=== PATIENT | male | born 1935 | race Caucasian/White ===

== ENCOUNTER 2016-05-31 12:28 | Day surgery (SDC) | payer MEDICARE, BC ==
[2016-05-31] VITALS (14 sets, daily range): BP systolic 125–161; BP diastolic 84–122; PULSE 51–89; TEMP 97.6
[~2016-05-31] VITALS: Ht 180.3 cm; Wt 114.0 kg
[2016-05-31] MEDS ORDERED: HCTZ 25MG TAB25 MG PO (13:08)
[2016-05-31] MEDS ORDERED: CORDARONE200 MG/TAB PO (13:09)
[2016-05-31] MEDS ORDERED: CARDIZEM CD 12120 MG PO (13:11)
[2016-05-31] MEDS ORDERED: COZAAR100 MG PO (13:12)
[2016-05-31] MEDS ORDERED: XARELTO20 MG PO (13:13)
[2016-05-31] MEDS ORDERED: FLOMAX 0.40.4 MG/CAP PO (13:14)
[2016-05-31 14:05] LABS: POTASSIUM 3.6 mmol/L (3.4-5.0)
[2016-05-31 14:33] LABS: INR 1.5 (0.8-3.0); PROTHROMBIN TIME 16.4 SECONDS (9.7-12.8)
[2016-05-31 14:40] LABS: THYROID STIMULATING HORMONE 5.58 uIU/mL (0.465-4.680)
[2016-10-28] MEDS ORDERED: PRILOSEC10 MG PO (10:11)
[2016-10-28] MEDS ORDERED: MULTI VITAMINS1 TAB PO (10:11)
== END 2016-05-31 16:40 | disposition home or self-care (01) ==
LOC: COL.CAR 12:28
PROVIDERS: Internal Medicine Interventional Cardiology
DX: I48.91 Unspecified atrial fibrillation (principal); I08.0 Rheumatic disorders of both mitral and aortic valves; Z79.01 Long term (current) use of anticoagulants; Z79.899 Other long term (current) drug therapy; R60.0 Localized edema; I87.2 Venous insufficiency (chronic) (peripheral)
CPT/HCPCS: J2250; J3010

== ENCOUNTER 2018-10-26 10:02 | Day surgery (SDC) | payer MEDICARE, BC ==
[~2018-10-26] VITALS: Ht 180.3 cm; Wt 105.4 kg
[~2018-10-26 10:02] MED LIST: ANTIVERT 25MG25 MG PO; ARICEPT 5MG PO; ASPIRIN 81M81 MG/TA2 PO; ASPIRIN E.C. 8181 MG PO; CARDIZEM CD 12120 MG PO; CORDARONE200 MG/TAB PO; COZAAR100 MG PO; FLOMAX 0.40.4 MG/CAP PO; HCTZ 25MG TAB25 MG PO; LASIX 20MG TABL20 MG PO; MULTI VITAMINS1 TAB PO; PRILOSEC10 MG PO; PROTONIX 40MG T40 MG PO; TIROSINT88 MC1 PO; ULTRAM 50MG TAB50 MG PO; XARELTO20 MG PO
[2018-10-26 10:55] LABS: INR 1.4 (0.8-3.0); POTASSIUM 3.6 mmol/L (3.4-5.0); PROTHROMBIN TIME 16.2 SECONDS (9.7-12.8)
[2018-10-26 11:03] VITALS: BP 163/112; PULSE 75; TEMP 98
[2018-10-26] MEDS ORDERED: PROTONIX 40MG T40 MG PO (11:07)
[2018-10-26] MEDS ORDERED: XARELTO20 MG PO (11:08)
[2018-10-26 11:30] LABS: THYROID STIMULATING HORMONE 1.78 uIU/mL (0.465-4.680)
[2018-10-26 13:17] VITALS: BP 120/96; PULSE 70; TEMP 98
--- NOTE | 2018-10-26 13:17 | NUR ---
JENNIFER/Cardioversion complete. VS at baseline. Family bedside
[2018-10-26 13:25] VITALS: BP 161/109; PULSE 72; TEMP 98
[2018-10-26 13:30] VITALS: BP 156/99; PULSE 70; TEMP 98
[2018-10-26 13:41] VITALS: BP 155/98; PULSE 72; TEMP 98
[2018-10-26 13:46] VITALS: BP 154/98; PULSE 71; TEMP 98
--- NOTE | 2018-10-26 13:46 | NUR ---
ECG SR. INT discontinued intact. VS at baseline
--- NOTE | 2018-10-26 14:03 | NUR ---
Discharge instructions given. Transferred to private car by yojana
== END 2018-10-26 14:03 | disposition home or self-care (01) ==
LOC: COL.CAR 10:02
PROVIDERS: Internal Medicine Interventional Cardiology
DX: I48.0 Paroxysmal atrial fibrillation (principal); I25.10 Atherosclerotic heart disease of native coronary artery without angina pectoris; R26.81 Unsteadiness on feet; B35.3 Tinea pedis; I70.1 Atherosclerosis of renal artery; I10 Essential (primary) hypertension; Z79.01 Long term (current) use of anticoagulants; Z82.3 Family history of stroke
CPT/HCPCS: J7030